=== PATIENT | male | born 1995 | race Caucasian/White ===

== ENCOUNTER 2018-10-06 07:07 | Inpatient (IN) | payer OTHER ==
[~2018-10-06] VITALS: Ht 188 cm; Wt 128.2 kg
--- NOTE | 2018-10-06 07:31 | NUR ---
PT TO ROOM 1 W/ /O WEAKNESS, MARCANO, CONSTIPATION, AND GENERAL MALAISE X 1 WK. PER PT ALSO FEEELS DEPRESSED. PT STATES NONCOMPLIANCE W/ INSULIN USAGE. PT BS 414 IN ED. PT RESTING ON GURNEY. MUCOUS MEMRANES DRY AND TACHYCARDIA. +POLYURIA. HX DM 2. PT STATES INABILITY TO PROVIDE UA AT THIS TIME.
[2018-10-06] MEDS ORDERED: SODIUM CHLORIDE 0.9% 1,000ML IVBOLUS ONE ×2 (08:00→08:30)
[2018-10-06 08:17] LABS: BASOPHILS # (AUTO) 0.02 x10^3/uL (0-0.1); BASOPHILS % (AUTO) 0 % (0-1); EOSINOPHILS # (AUTO) 0.02 x10^3/uL (0-0.4); EOSINOPHILS % (AUTO) 0 % (1-7); LYMPHOCYTES # (AUTO) 1.43 x10^3/uL (1-3.4); LYMPHOCYTES % (AUTO) 10 % (22-44); MD NO; MEAN CORPUSCULAR HEMOGLOBIN 27.8 pg (27.5-34.5); MEAN CORPUSCULAR HGB CONC 33.4 g/dL (33.2-36.2); MEAN CORPUSCULAR VOLUME 83.2 fL (81-97); MEAN PLATELET VOLUME 12.8 fL (7.4-10.4); MONOCYTES # (AUTO) 0.58 x10^3/uL (0.2-0.8); MONOCYTES % (AUTO) 4 % (2-9); NEUTROPHILS # (AUTO) 12.19 x10^3/uL (1.8-6.8); NEUTROPHILS % (AUTO) 86 % (42-75); PLATELET COUNT 244 x10^3/uL (130-400); RED BLOOD COUNT 6.22 x10^6/uL (4.38-5.82); RED CELL DISTRIBUTION WIDTH 13.8 % (9.4-14.8)
[2018-10-06 08:20] LABS: PH, VENOUS 7.159 pH (7.320-7.420)
[2018-10-06 08:21] LABS: FIO2 ROOM AIR %
[2018-10-06 08:31] LABS: ALBUMIN 4.1 g/dL (3.4-5.0); ANION GAP 20 mmol/L (5-15); CALCIUM 9.5 mg/dL (8.5-10.1); CHLORIDE 100 mmol/L (98-107)
[2018-10-06 08:35] LABS: ALANINE AMINOTRANSFERASE 60 U/L (12-78); ALKALINE PHOSPHATASE 218 U/L (45-117); BILIRUBIN,TOTAL 0.8 mg/dL (0.2-1.0); CREATININE 1.43 mg/dL (0.7-1.3); SALICYLATE LEVEL 3.9 mg/dL (2.8-20.0); TOTAL PROTEIN 9.9 g/dL (6.4-8.2)
[2018-10-06 08:40] LABS: ACETAMINOPHEN < 2 mcg/mL (10-30)
[2018-10-06 08:57] LABS: AMPHETAMINE SCREEN, URINE Negative (Negative); BARBITURATE SCREEN, URINE Negative (Negative); BENZODIAZEPINE SCREEN, URINE Negative (Negative); CANNABINOID SCREEN, URINE Negative (Negative); COCAINE SCREEN, URINE Negative (Negative); METHADONE SCREEN, URINE Negative (Negative); OPIATE SCREEN, URINE Negative (Negative)
--- NOTE | 2018-10-06 09:25 | NUR ---
PT RESTING ON DAVID. VSS. TASK RN AT BEDSIDE ATTEMPTING SECOND PIV.
[2018-10-06 09:41] LABS: MICROSCOPIC AUTO
[2018-10-06 09:42] LABS: CULTURE INDICATED? NO
--- NOTE | 2018-10-06 09:45 | NUR ---
PT BS 334 AFTER 2L IVF. EDPA NOTIFIED.
[2018-10-06 10:10] LABS: ACETONE, SERUM Large (80mg/dL) mg/dL (Negative)
[2018-10-06] MEDS ORDERED: INSULIN LISPRO 100 UNITS/ML, PEN ONE (10:10)
--- NOTE | 2018-10-06 10:18 | NUR ---
PT RESTING ON CHRISTAL. VSS. IV INSULIN ADMIN.
[2018-10-06] MEDS ORDERED: INSULIN REGULAR 100 UNITS/ML, 3ML VIAL SQ-INSULIN ONE (10:30)
--- NOTE | 2018-10-06 11:13 | NUR ---
PT RESTING ON CHRISTAL. [facility] HOSPITAL BED ORDERED FOR PT.
--- NOTE | 2018-10-06 11:34 | NUR ---
PT MOVED FROM [facility] TO HOSPITAL BED. POSITIONED ON BED FOR COMFORT. NADN. FAMILY REMAINS AT BEDSIDE.
--- NOTE | 2018-10-06 12:12 | NUR ---
SPOKE W/ DELPHINE CHA ABOUT PT BS. PER DELPHINE AWAIT [facility] ORDERS. AWAITING DR. GOMEZ ORDERS.
--- NOTE | 2018-10-06 12:17 | NUR ---
PT RESTING IN BED. NADN. VSS. PT AWARE OF AWAITING INSTALLATION ENGINEER ORDERS.
[2018-10-06] MEDS ORDERED: METF500T17 PO (12:51)
[2018-10-06] MEDS ORDERED: ANTIDEPRESSANT PO (12:51)
--- NOTE | 2018-10-06 13:13 | NUR ---
ASSUMED CARE OF PT WHILE PRIMARY RN ON LUNCH BREAK. BLOOD GLUCOSE 282. PT RESTING IN BED.
--- NOTE | 2018-10-06 13:41 | NUR ---
DR. GOMEZ AT BEDSIDE.
[2018-10-06 14:13] LABS: ANION GAP 16 mmol/L (5-15); CALCIUM 9.1 mg/dL (8.5-10.1); CHLORIDE 108 mmol/L (98-107)
[2018-10-06 14:14] LABS: CREATININE 1.27 mg/dL (0.7-1.3)
--- NOTE | 2018-10-06 14:14 | NUR ---
PT RESTING IN BED. NADN. VSS.
[2018-10-06] MEDS ORDERED: ONDANSETRON 2MG/ML, 2ML IVPush PRN (14:30)
[2018-10-06] MEDS ORDERED: REGULAR INSULIN 62.5 UNITS in SODIUM CHLORIDE 0.9% 249.375 ML IV PRN (14:30)
[2018-10-06] MEDS ORDERED: OXYcodone/APAP 5/325MG TABLET PO PRN (14:30)
--- NOTE | 2018-10-06 14:36 | NUR ---
YELLOW SLIP SENT TO RX FOR INSULN AND D5W
[2018-10-06] MEDS ORDERED: ENOXAPARIN 40 MG/0.4 ML ONE (15:07)
[2018-10-06] MEDS: ENOXAPARIN 40 MG/0.4 ML SQ SCH (15:15)
--- NOTE | 2018-10-06 15:20 | NUR ---
PT RESTING ON GURNEY. NADN. RIZO.
[2018-10-06] MEDS: D5%-0.45NACL+KCL 20MEQ 1,000 ML IV SCH ×2 (15:31→23:32)
[2018-10-06 17:34] LABS: ANION GAP 16 mmol/L (5-15); CALCIUM 8.6 mg/dL (8.5-10.1); CHLORIDE 110 mmol/L (98-107)
[2018-10-06 17:36] LABS: CREATININE 1.23 mg/dL (0.7-1.3)
[2018-10-06] MEDS: SODIUM CHLORIDE 0.9% 1,000 ML IV SCH (17:52)
--- NOTE | 2018-10-06 18:12 | NUR ---
PT RESTING ON GURNEY. NADN. RIZO.
--- NOTE | 2018-10-06 19:07 | NUR ---
REPORT GIVEN TO OWEN PETIT RN.
--- NOTE | 2018-10-06 19:08 | NUR ---
RECEIVED REPORT FROM AZEEM URRUTIA. PATIENT RESTING COMFORTABLY IN BED. VSS.
--- NOTE | 2018-10-06 19:39 | NUR ---
FS-247 MG/DL , PATIENT ALERT AND ORIENTED. NO PAIN. VSS
--- NOTE | 2018-10-06 20:41 | NUR ---
patient went to bathroom with steady gait. FS- 230 mg/dl.
[2018-10-06 21:23] LABS: ANION GAP 15 mmol/L (5-15); CALCIUM 8.5 mg/dL (8.5-10.1); CHLORIDE 114 mmol/L (98-107); CREATININE 1.09 mg/dL (0.7-1.3)
--- NOTE | 2018-10-06 22:56 | NUR ---
FS- 201 mg /dl. Insulin drip decreased to 5 units / hr.
--- NOTE | 2018-10-06 23:33 | NUR ---
D5 0.45 NS with 20 meq K+ started. VSS.
--- NOTE | 2018-10-07 | NUR ---
patient FS- 230 mg /dl. insulin drip increased to 6 units / hr.
--- NOTE | 2018-10-07 01:23 | NUR ---
PT BEDSIDE REPORT FROM DAMASO GANN. THIS RN TO ASSUME CARE OF PT. NO IMMDIATE NEEDS AT THIS TIME. FAMILY AT BEDSIDE.
[2018-10-07 01:32] LABS: ANION GAP 12 mmol/L (5-15); CALCIUM 8.4 mg/dL (8.5-10.1); CHLORIDE 113 mmol/L (98-107); CREATININE 1.18 mg/dL (0.7-1.3)
--- NOTE | 2018-10-07 01:34 | NUR ---
Note karie in EDM - 10/07/18 at 0135 by EDUIN PT REPORT FROM DAMASO GANN. IV INFUSING APPROPRIATELY. SLEEPING OMFORTABLY. RR EVEN AND UNLABORED. NADN. BEST.
--- NOTE | 2018-10-07 02:32 | NUR ---
PT FSBG 209 AND INCREASED 1 U/HR INSULIN PER MD ORDER TO OBTAIN SUGAR BETWEEN 150-200.
--- NOTE | 2018-10-07 03:54 | NUR ---
PT AMB W/ STEADY GAIT TO RR. REHOOKED UP TO ALL MONITORING.
[2018-10-07 05:15] LABS: BASOPHILS # (AUTO) 0.04 x10^3/uL (0-0.1); BASOPHILS % (AUTO) 0 % (0-1); EOSINOPHILS # (AUTO) 0.08 x10^3/uL (0-0.4); EOSINOPHILS % (AUTO) 1 % (1-7); LYMPHOCYTES # (AUTO) 1.88 x10^3/uL (1-3.4); LYMPHOCYTES % (AUTO) 17 % (22-44); MD NO; MEAN CORPUSCULAR HEMOGLOBIN 28.5 pg (27.5-34.5); MEAN CORPUSCULAR HGB CONC 34.5 g/dL (33.2-36.2); MEAN CORPUSCULAR VOLUME 82.6 fL (81-97); MEAN PLATELET VOLUME 12.1 fL (7.4-10.4); MONOCYTES # (AUTO) 0.84 x10^3/uL (0.2-0.8); MONOCYTES % (AUTO) 8 % (2-9); NEUTROPHILS # (AUTO) 8.36 x10^3/uL (1.8-6.8); NEUTROPHILS % (AUTO) 75 % (42-75); PLATELET COUNT 211 x10^3/uL (130-400); RED CELL DISTRIBUTION WIDTH 13.5 % (9.4-14.8)
[2018-10-07 05:16] LABS: ALANINE AMINOTRANSFERASE 43 U/L (12-78); ALBUMIN 3.3 g/dL (3.4-5.0); ANION GAP 11 mmol/L (5-15); CHLORIDE 115 mmol/L (98-107); CREATININE 1.15 mg/dL (0.7-1.3)
[2018-10-07 05:19] LABS: ALKALINE PHOSPHATASE 164 U/L (45-117); BILIRUBIN,TOTAL 0.5 mg/dL (0.2-1.0)
--- NOTE | 2018-10-07 05:25 | NUR ---
RX CALLED TO DOUBLE CHECK ORDER ON TITRATABLE HUMULIN. RX KRISTY STATES "FOLLOW SPECIAL MD INSTRUCTIONS AND DKA MD PROTOCOL."
[2018-10-07 05:42] LABS: HEMOGLOBIN A1C 11.8 % (4.2-6.3)
--- NOTE | 2018-10-07 05:43 | NUR ---
PT SLEEPING W/ PARENTS AT BEDSIDE. NADN. VSS. CALL LIGHT WITHIN REACH. IVF INFUSING APPROPRIATELY.
[2018-10-07] MEDS: SODIUM CHLORIDE 0.9% 1,000 ML IV SCH ×2 (06:08→16:23)
--- NOTE | 2018-10-07 06:27 | NUR ---
ANION GAP 14.6 AT THIS TIME.
--- NOTE | 2018-10-07 07:01 | NUR ---
REPORT TO DAVID GANN.
--- NOTE | 2018-10-07 07:10 | NUR ---
REPORT RECIVED FROM MARC GANN. PATIENT FOUND RESTING COMFORTABLY IN HOSPITAL BED. VSS, FSBS 218, DENIES PAIN /NAUSEA. SIPPING WATER. HOSPITALIST AT BEDSIDE-TO REVIEW ORDERS TO CONSIDER INSULIN/ELECTROLYE ROUTE/RATE. MOTHER/FATHER AT BEDSIDE. CALL VALENCIA IN HAND/SIDERAILS UP
--- NOTE | 2018-10-07 07:32 | NUR ---
cardiac rhythm strip printed/placed on chart
--- NOTE | 2018-10-07 08:27 | NUR ---
INSULIN REMAINS AT 9 UNITS/D5 1/2-20K @ 150Ml/HR. FSBS 189 (218 1 HOUR AGO). VSS. CONTINUES TO DENIES COMPLAINTS. VSS. DRINKING SMALL AMOUNTS OF WATER. OFFERED OPPORTUNITY TO WALK AROUND/BATH. TO CLARIFY INSULIN PLAN W/ BOTTOM LOADER SHORTLY
[2018-10-07 09:24] LABS: ANION GAP 9 mmol/L (5-15); CHLORIDE 113 mmol/L (98-107); CREATININE 1.08 mg/dL (0.7-1.3)
[2018-10-07] MEDS: D5%-0.45NACL+KCL 20MEQ 1,000 ML IV SCH (09:34)
--- NOTE | 2018-10-07 09:55 | NUR ---
INSULIN REMAINS AT 9 UNITS/D5 1/2-20K @ 150Ml/HR. NEW BAGS OF BOTH HUNG. FSBS 204 ( VSS. CONTINUES TO DENIES COMPLAINTS. DRINKING SMALL AMOUNTS OF WATER. OFFERED OPPORTUNITY TO WALK AROUND/BATH. DOES NOT REPORT NEED TO VOID. WILL CONTINUE TO CLOSELY MONITOR
--- NOTE | 2018-10-07 10:00 | NUR ---
LEFT VOICEMAIL FOR DR. GOMEZ TO CLARIFY INSULIN ORDERS
--- NOTE | 2018-10-07 10:30 | NUR ---
SPOKE TO DR GOMEZ. TO ADMININSTER LANTUS/POSTASSIUM NOW, CHANGE INSULIN DRIP TO 3 UNITS/HR. THEN IN 2 HOURS D/C INSULING DRIP AND D5 MAINTENANCE. TO START ON CLEAR LIQUID DIET. IN THE MEANTIME TO CHECK HOURLY SUGARS. ORDERS CHANGED FROM ICU TO FLOOR
[2018-10-07] MEDS ORDERED: DEXTROSE 50%, 50ML SYRINGE IVPush PRN (11:00)
[2018-10-07] MEDS ORDERED: GLUCAGON 1 MG IM PRN (11:00)
[2018-10-07] MEDS ORDERED: POTASSIUM CHLORIDE 40 MEQ in SODIUM CHLORIDE 0.9% 500 ML IV ONE (11:00)
[2018-10-07] MEDS ORDERED: DEXTROSE 4 GM TAB.CHEW PO PRN (11:00)
--- NOTE | 2018-10-07 11:05 | NUR ---
DIABETIC CLEAR LIQUID TRAY ORDERED
--- NOTE | 2018-10-07 11:30 | NUR ---
insulin drip from 9 units/hr to 3/units an hour at 1130am-to remainat this rate for 2 hours (130p)
[2018-10-07] MEDS: INSULIN GLARGINE 100 UNITS/ML, PEN SQ-INSULIN SCH ×2 (11:54→19:42)
--- NOTE | 2018-10-07 12:06 | NUR ---
Clear liquid tray to bedside. encouraged to go slow but to eat what he can. pharmacy called to clarify if permissible to infuse d51/2 w20k and ns 500ml w/ 40k. Pharmacy does not advise. Dr. Funes called- to stop d51/2 w/ 20 k and start ns w/ 40 k. Patient updated. Denies complaint. vss. call munson in hand/side rails up. family at bedside
--- NOTE | 2018-10-07 12:43 | NUR ---
ATE ENTIRE CLEAR LIQUID TRAY W/OUT NAUSEA/DISCOMFORT. ADVISED TO WATCH FOR FEELING OF HYPOGLYCEMIA WITH CHANGE IN INSLULINS/LACK OF DEXTROSE INFUSION. NS 500Ml W/ 40K INFUSING AT 130/HR & INSULIN INFUSING AT 3 UNITS/HR. VSS. IN HOSPITAL BED WITH CALL VALENCIA IN HAND. FAMILY AT BEDSIDE. WILL CONTINUE TO MONITOR
[2018-10-07 13:36] LABS: ANION GAP 11 mmol/L (5-15); CALCIUM 8.3 mg/dL (8.5-10.1); CHLORIDE 113 mmol/L (98-107); CREATININE 1.05 mg/dL (0.7-1.3)
--- NOTE | 2018-10-07 14:04 | NUR ---
spoke to dr. lopes. insulin drip stopped. to administer 10 units of lispro sq and transfer to floor
[2018-10-07] MEDS ORDERED: INSULIN LISPRO 100 UNITS/ML, PEN ONE (14:14)
[2018-10-07] MEDS: INSULIN LISPRO 100 UNITS/ML, PEN SQ-INSULIN SCH ×3 (14:22→19:42)
--- NOTE | 2018-10-07 15:08 | NUR ---
Report to Yuliet GANN. Pt ready for transport.
[2018-10-07 16:03] VITALS: BP 114/75
[2018-10-07] MEDS: ENOXAPARIN 40 MG/0.4 ML SQ SCH (16:23)
[2018-10-07 17:42] LABS: ANION GAP 8 mmol/L (5-15); CALCIUM 8.7 mg/dL (8.5-10.1); CHLORIDE 115 mmol/L (98-107); CREATININE 1.02 mg/dL (0.7-1.3)
[2018-10-07 19:22] VITALS: BP 119/71
[2018-10-07] MEDS: SODIUM CHLORIDE FLUSH 10ML SYR IVF SCH (19:44)
[2018-10-07 19:58] LABS: MICROSCOPIC INDICATED
[2018-10-07 20:07] LABS: CULTURE INDICATED? NO
[2018-10-08] MEDS: SODIUM CHLORIDE 0.9% 1,000 ML IV SCH ×3 (02:02→21:25)
[2018-10-08 03:55] VITALS: BP 110/64
[2018-10-08 06:08] LABS: BASOPHILS # (AUTO) 0.04 x10^3/uL (0-0.1); BASOPHILS % (AUTO) 1 % (0-1); EOSINOPHILS # (AUTO) 0.14 x10^3/uL (0-0.4); EOSINOPHILS % (AUTO) 2 % (1-7); LYMPHOCYTES # (AUTO) 1.74 x10^3/uL (1-3.4); LYMPHOCYTES % (AUTO) 20 % (22-44); MD NO; MEAN CORPUSCULAR HGB CONC 33.8 g/dL (33.2-36.2); MEAN CORPUSCULAR VOLUME 82.8 fL (81-97); MEAN PLATELET VOLUME 12.1 fL (7.4-10.4); MONOCYTES # (AUTO) 0.66 x10^3/uL (0.2-0.8); MONOCYTES % (AUTO) 7 % (2-9); NEUTROPHILS # (AUTO) 6.36 x10^3/uL (1.8-6.8); NEUTROPHILS % (AUTO) 71 % (42-75); PLATELET COUNT 200 x10^3/uL (130-400); RED CELL DISTRIBUTION WIDTH 13.5 % (9.4-14.8)
[2018-10-08 06:13] LABS: ALBUMIN 2.9 g/dL (3.4-5.0); ANION GAP 10 mmol/L (5-15); CALCIUM 8.9 mg/dL (8.5-10.1); CHLORIDE 112 mmol/L (98-107)
[2018-10-08 06:19] LABS: ALANINE AMINOTRANSFERASE 35 U/L (12-78); ALKALINE PHOSPHATASE 152 U/L (45-117); BILIRUBIN,TOTAL 0.6 mg/dL (0.2-1.0); CREATININE 0.88 mg/dL (0.7-1.3)
[2018-10-08] MEDS: SODIUM CHLORIDE FLUSH 10ML SYR IVF SCH ×2 (07:38→21:09)
[2018-10-08] MEDS: INSULIN LISPRO 100 UNITS/ML, PEN SQ-INSULIN SCH ×4 (07:39→21:10)
[2018-10-08] MEDS: INSULIN GLARGINE 100 UNITS/ML, PEN SQ-INSULIN SCH ×2 (07:39→21:12)
[2018-10-08 07:51] VITALS: BP 133/84
[2018-10-08] MEDS ORDERED: POTASSIUM CHLORIDE 20 MEQ TAB.ER.PRT PO ONE ×2 (11:00→16:00)
[2018-10-08] MEDS ORDERED: INSULIN LISPRO 100 UNITS/ML, PEN SQ-INSULIN SCH (11:00)
[2018-10-08 13:13] VITALS: BP 115/78
[2018-10-08] MEDS: ENOXAPARIN 40 MG/0.4 ML SQ SCH (16:24)
[2018-10-08 20:20] VITALS: BP 113/71
[2018-10-09 02:05] VITALS: BP 124/70
[2018-10-09 05:38] LABS: BASOPHILS # (AUTO) 0.03 x10^3/uL (0-0.1); BASOPHILS % (AUTO) 0 % (0-1); EOSINOPHILS # (AUTO) 0.18 x10^3/uL (0-0.4); EOSINOPHILS % (AUTO) 2 % (1-7); LYMPHOCYTES # (AUTO) 2.31 x10^3/uL (1-3.4); LYMPHOCYTES % (AUTO) 28 % (22-44); MD NO; MEAN CORPUSCULAR HEMOGLOBIN 28.6 pg (27.5-34.5); MEAN CORPUSCULAR HGB CONC 34.7 g/dL (33.2-36.2); MEAN CORPUSCULAR VOLUME 82.2 fL (81-97); MEAN PLATELET VOLUME 11.5 fL (7.4-10.4); MONOCYTES # (AUTO) 0.67 x10^3/uL (0.2-0.8); MONOCYTES % (AUTO) 8 % (2-9); NEUTROPHILS % (AUTO) 62 % (42-75); PLATELET COUNT 184 x10^3/uL (130-400); RED BLOOD COUNT 4.59 x10^6/uL (4.38-5.82); RED CELL DISTRIBUTION WIDTH 13.6 % (9.4-14.8)
[2018-10-09 05:55] LABS: CHLORIDE 109 mmol/L (98-107)
[2018-10-09 06:02] LABS: ALANINE AMINOTRANSFERASE 32 U/L (12-78); ALBUMIN 2.7 g/dL (3.4-5.0); ALKALINE PHOSPHATASE 137 U/L (45-117); ANION GAP 8 mmol/L (5-15); BILIRUBIN,TOTAL 0.5 mg/dL (0.2-1.0); CALCIUM 8.5 mg/dL (8.5-10.1); CREATININE 0.71 mg/dL (0.7-1.3); TOTAL PROTEIN 6.8 g/dL (6.4-8.2)
[2018-10-09] MEDS: SODIUM CHLORIDE 0.9% 1,000 ML IV SCH ×2 (06:24→16:27)
[2018-10-09 07:09] VITALS: BP 127/68
[2018-10-09] MEDS: INSULIN LISPRO 100 UNITS/ML, PEN SQ-INSULIN SCH ×4 (07:50→20:55)
[2018-10-09] MEDS: INSULIN GLARGINE 100 UNITS/ML, PEN SQ-INSULIN SCH ×2 (07:51→20:56)
[2018-10-09] MEDS: SODIUM CHLORIDE FLUSH 10ML SYR IVF SCH ×2 (07:54→20:56)
[2018-10-09] MEDS ORDERED: POTASSIUM CHLORIDE 20 MEQ TAB.ER.PRT PO ONE (12:30)
[2018-10-09 13:35] VITALS: BP 104/62
[2018-10-09] MEDS: ENOXAPARIN 40 MG/0.4 ML SQ SCH (16:24)
[2018-10-09] MEDS: metFORMIN 500 MG TABLET PO SCH (16:27)
[2018-10-09 20:26] VITALS: BP 124/65
[2018-10-10] MEDS: SODIUM CHLORIDE 0.9% 1,000 ML IV SCH (01:19)
[2018-10-10 02:06] VITALS: BP 127/65
[2018-10-10 06:39] LABS: CHLORIDE 110 mmol/L (98-107)
[2018-10-10 06:50] LABS: ALANINE AMINOTRANSFERASE 36 U/L (12-78); ALBUMIN 2.7 g/dL (3.4-5.0); ALKALINE PHOSPHATASE 138 U/L (45-117); ANION GAP 8 mmol/L (5-15); BILIRUBIN,TOTAL 0.4 mg/dL (0.2-1.0); CALCIUM 8.4 mg/dL (8.5-10.1); TOTAL PROTEIN 6.8 g/dL (6.4-8.2)
[2018-10-10 07:39] VITALS: BP 98/61
[2018-10-10] MEDS ORDERED: INSU100I13 SQ-INSULIN (08:15)
[2018-10-10] MEDS ORDERED: METF500T PO (08:15)
[2018-10-10] MEDS: INSULIN LISPRO 100 UNITS/ML, PEN SQ-INSULIN SCH ×2 (08:23→12:00)
[2018-10-10] MEDS: INSULIN GLARGINE 100 UNITS/ML, PEN SQ-INSULIN SCH (08:23)
[2018-10-10] MEDS ORDERED: POTASSIUM CHLORIDE 20 MEQ TAB.ER.PRT PO ONE (08:30)
[2018-10-10] MEDS: SODIUM CHLORIDE FLUSH 10ML SYR IVF SCH (09:00)
[2018-10-10] MEDS: metFORMIN 500 MG TABLET PO SCH (09:31)
== END 2018-10-10 12:30 | disposition home or self-care (01) | DRG 638 ==
LOC: ED 09:06 → EDIP 09:59 → 4NOR 10-07 15:55 → DCLOUNGE 10-10 12:27
PROVIDERS: ADMIT Internal Medicine; ATTEND Internal Medicine
DX: E11.10 Type 2 diabetes mellitus with ketoacidosis without coma (principal); N17.9 Acute kidney failure, unspecified; R45.851 Suicidal ideations; R65.10 Systemic inflammatory response syndrome (SIRS) of non-infectious origin without acute organ dysfunction; D72.829 Elevated white blood cell count, unspecified; E66.01 Morbid (severe) obesity due to excess calories; E87.6 Hypokalemia; F32.9 Major depressive disorder, single episode, unspecified; K59.00 Constipation, unspecified; Z91.14 Patient's other noncompliance with medication regimen; Z91.19 Patient's noncompliance with other medical treatment and regimen; Z68.36 Body mass index [BMI] 36.0-36.9, adult
CPT/HCPCS: 36415; 71045; 74021; 80048; 80053; 80307; 80329; 81001; 82010; 82803; 82962; 83036; 83735; 84100; 85025; 93005; 96361; 96365; 96366; 96372; 96375; G0378; J1650; J1815; J3480; G0480; J7030; J7040; J7050